=== PATIENT | female | born 1980 | race Caucasian/White ===

== ENCOUNTER 2018-03-31 18:16 | Emergency (ER) | payer MEDICAID ==
[2018-03-31] MEDS ORDERED: Ketorolac 60 MG/2 ML SDV IM ONE (20:05)
--- NOTE | 2018-03-31 20:24 | EDM.PDOC ---
ED HPI GENERAL MEDICAL PROBLEM - General Chief Complaint: Headache Stated Complaint: HEAD ACHE VOMITING Time Seen by Provider: 03/31/18 19:50 Source of Information: Reports: Patient History Limitations: Reports: No Limitations - History of Present Illness INITIAL COMMENTS - FREE TEXT/NARRATIVE: Patient is a 37 year old female who presents to the E.D. complaining of pain to the top of her head from a cyst that is present. States she was evaluated at the [facility] with instructions to make an appt with general surgeon to have the cyst removed. States she was laying on the back of her head and the pain has worsened. She became mildly nauseated while shopping at [employer] and vomited. During the n/v she had some mild dizziness and tingling to her upper extremities. This has resolved with admission to the E.D. Cyst was noticed one week ago. Patient was in contact with one of the nurses at [facility] with instructions to come to the ED for further testing and pain management. Patient has history of migraines but notes she had a headache that has since improved. She denies recent trauma to the headache, vision changes, stiff neck, weakness to the upper or lower extremities, fever, chills, or any additional complaints. Nausea has improved prior to admission. headache Pain Score (Numeric/FACES): 8 - Related Data Allergies Allergy/AdvReac Type Severity Reaction Status Date / Time No Known Allergies Allergy Verified 03/31/18 18:25 Home Meds: Home Meds . [No Known Home Meds] 03/31/18 [History] Past Medical History Dermatologic History: Reports: Other (See Below) Other Dermatologic History: cyst like area to top of head Social & Family History - Family History Family Medical History: Noncontributory - Tobacco Use Smoking Status *Q: Current Every Day Smoker Years of Tobacco use: 20 Packs/Tins Daily: 1 - Caffeine Use Caffeine Use: Reports: Tea - Recreational Drug Use Recreational Drug Use: No ED ROS GENERAL - Review of Systems Review Of Systems: ROS reveals no pertinent complaints other than HPI. - Physical Exam Exam: See Below Exam Limited By: No Limitations General Appearance: Alert, WD/WN, Mild Distress Eye Exam: Bilateral Eye: EOMI, Nystagmus (None noted), PERRL Ears: Hearing Grossly Normal Nose: Normal Inspection Throat/Mouth: Normal Voice, No Airway Compromise Head Exam: Other (Tenderness noted to the crown of the head with questionable small cyst just under the skin. Patient on examination did have pain on palpation. I asked the patient to point at the area of concern to which she rubbed the area quite aggressive to localize the cyst. When I palpated the area with light pressure she complained of worsening pain and grabbed by hand to stop. No other pertinent findings. ) Neck: Normal Inspection, Supple, Non-Tender, Full Range of Motion Respiratory/Chest: No Respiratory Distress, Lungs Clear, Normal Breath Sounds Cardiovascular: Normal Peripheral Pulses, Regular Rate, Rhythm Neuro Exam (Abbreviated): Alert, Oriented, CN II-XII Intact, Normal Cognition, No Motor/Sensory Deficits, Other (On history taking patient complaining of some faint numbness and taken to extremities that was not appreciated on examination. She had full sensory motor intact to the upper or lower extremities. No neurological deficits noted.) Back Exam: Normal Inspection Extremities: Normal Inspection Psychiatric: Normal Affect, Normal Mood Skin Exam: Warm, Dry, Intact, Normal Color, No Rash Course - Vital Signs Last Recorded V/S: Last Vital Signs Temp 98.2 F 03/31/18 18:16 Pulse 79 03/31/18 18:16 Resp 18 03/31/18 18:16 BP 142/91 H 03/31/18 18:16 Pulse Ox 100 03/31/18 18:16 - Orders/Labs/Meds Meds: Medications Discontinued Medications Generic Name Dose Route Start Last Admin Trade Name Lalo PRN Reason Stop Dose Admin Ketorolac Tromethamine 60 mg 03/31/18 20:05 03/31/18 20:17 Toradol IM 03/31/18 20:06 60 mg ONETIME ONE Administration - Re-Assessments/Exams Free Text/Narrative Re-Assessment/Exam: Small cyst noted to the top of the head with increasing pain with gentle pressure. This is a drastic contrast to when the patient was finding the small cyst with aggressive rubbing. Ordered toradol 60mg IM for scalp pain from cyst to the top of the head. 2018 Per nursing staff patient is ready to go home prior to Toradol medication taking affect. The patient remained hemodynamically stable while under my care in the E.D. I discussed the concerning symptoms for which to return to the E.D. with the patient/family. The patient/family verbalized understanding. All questions were answered. 03/31/18 21:42 Departure - Departure Time of Disposition: 20:22 Disposition: Home, Self-Care 01 Condition: Good Clinical Impression: Pain of scalp, Scalp cyst - Discharge Information Referrals: PCP,None [Primary Care Provider] - Forms: ED Department Discharge Additional Instructions: Keep appt with general surgeon tomorrow as scheduled for cyst removal. Take ibuprofen and Tylenol in alternating fashion for discomfort. Refrain from touching the affected area since this only worsens the symptoms. Please return back to the ED if you develop any new or worsening symptoms.
== END 2018-03-31 20:39 | disposition home or self-care (01) ==
LOC: JD.ED 18:16
DX: L72.8 Other follicular cysts of the skin and subcutaneous tissue (principal); F17.210 Nicotine dependence, cigarettes, uncomplicated
CPT/HCPCS: 96372; 99284; J1885

== ENCOUNTER 2022-06-07 10:19 | Emergency (ER) | payer MEDICAID ==
[2022-06-07] MEDS ORDERED: Ondansetron 4 MG/2 ML SDV IVPUSH ONE (11:05)
[2022-06-07] MEDS ORDERED: LORazepam 2 MG/ML SDV IVPUSH ONE (11:05)
[2022-06-07] MEDS ORDERED: Acetaminophen 325 MG Tab PO ONE (13:30)
[2022-06-07] MEDS ORDERED: Ketorolac 30 MG/ML SDV IVPUSH ONE (13:30)
== END 2022-06-07 14:52 | disposition home or self-care (01) ==
LOC: JD.ED 10:19
DX: R07.89 Other chest pain (principal); R00.2 Palpitations; R51.9 Headache, unspecified; I10 Essential (primary) hypertension; Z79.899 Other long term (current) drug therapy
CPT/HCPCS: 36415; 70450; 80053; 84484; 85025; 93005; 96374; 96375; 99285; A9270; J1885; J2060; J2405; 93010; 99284

== ENCOUNTER 2024-07-06 14:57 | Emergency (ER) | payer MEDICAID ==
[2024-07-06 17:44] LABS: BASOPHILS ABSOLUTE AUTO 0.1 K/mm3 (0.0-0.2); BASOPHILS PERCENT AUTO 0.7 % (0.0-1.0); EOSINOPHILS ABSOLUTE AUTO 0.4 K/mm3 (0.0-0.4); HEMATOCRIT 50.8 % (37.0-47.0); IMMATURE GRAN ABSOLUTE AUTO 0.06 K/mm3 (0.00-0.05); IMMATURE GRAN PERCENT AUTO 0.4 % (0.0-0.4); MEAN CORPUSCULAR HEMOGLOBIN 31.3 pg (28.0-32.0); MEAN CORPUSCULAR HGB CONC 33.5 g/dl (32.0-36.0); MEAN CORPUSCULAR VOLUME 93.6 fl (83.0-99.0); MEAN PLATELET VOLUME 8.7 fl (9.4-12.3); MONOCYTES ABSOLUTE AUTO 1.1 K/mm3 (0.0-0.8); MONOCYTES PERCENT AUTO 7.7 % (0.0-8.0); NEUTROPHILS ABSOLUTE AUTO 9.2 K/mm3 (1.8-7.7); NEUTROPHILS PERCENT AUTO 66.2 % (41.0-71.0); PLATELET COUNT,PLT 380 K/mm3 (150-400); RED BLOOD CELL COUNT 5.43 M/mm3 (4.10-5.30); WHITE BLOOD CELL COUNT,WBC 13.84 K/mm3 (3.9-11.3)
[2024-07-06] MEDS: Ketorolac 30 MG/ML SDV IVPUSH ONE (17:45)
[2024-07-06] MEDS: Metoclopramide 10 MG/2 ML SDV IVPUSH ONE (17:46)
[2024-07-06] MEDS: Sodium Chloride 0.9% 1,000 ML IV ONE (17:46)
[2024-07-06 18:13] LABS: A/G RATIO 0.8 (1-2); ALBUMIN 3.6 g/dl (3.4-5.0); ANION GAP 12.7 (5-15); BILIRUBIN TOTAL 0.4 mg/dL (0.2-1.0); BUN/CREATININE RATIO 17.5 (14-18); CALCIUM 9.3 mg/dL (8.5-10.1); CREATININE 0.8 mg/dL (0.55-1.02); EST CRCL DRUG DOSING (CG) 83.13 mL/min; POTASSIUM,K 4.7 mEq/L (3.5-5.1); PROTEIN TOTAL,TP 7.9 g/dl (6.4-8.2)
== END 2024-07-06 18:35 | disposition left against medical advice (07) ==
LOC: JD.ED 14:57
DX: G43.009 Migraine without aura, not intractable, without status migrainosus (principal); I10 Essential (primary) hypertension; Z86.16 Personal history of COVID-19; F17.210 Nicotine dependence, cigarettes, uncomplicated
CPT/HCPCS: 36415; 70450; 80053; 85025; 96374; 96375; 99284; J1885; J2765; J7030; 99283